=== PATIENT | female | born 1965 | race Caucasian/White ===

== ENCOUNTER 2019-08-16 10:56 | Outpatient (CLI) | payer OTHER ==
[2019-08-16 12:24] LABS: MEAN CORPUSCULAR HEMOGLOBIN 21.5 pg (27.0-34.8); MEAN CORPUSCULAR HGB CONC 30.7 g/dL (32.4-35.8); MEAN CORPUSCULAR VOLUME 70.1 fL (80-100); MEAN PLATELET VOLUME 8.5 fL (7.4-10.4); PLATELET COUNT 410 x10^3/uL (130-400); RED BLOOD COUNT 5.36 x10^6/uL (3.82-5.3); RED CELL DISTRIBUTION WIDTH 22.6 % (9.6-15.2)
[2019-08-16] MEDS ORDERED: B COMPLEX PO (12:30)
[2019-08-16] MEDS ORDERED: MAGNESIUM PO (12:30)
[2019-08-16] MEDS ORDERED: MULT-252 PO (12:30)
[2019-08-16] MEDS ORDERED: VIT. D3 PO (12:30)
[2019-08-16] MEDS ORDERED: ASPIRIN PO (12:30)
[2019-08-16] MEDS ORDERED: LEVO25TA4 PO (12:30)
[2019-08-16 12:46] LABS: BASOPHILS # (AUTO) 0.02 x10^3/uL (0-0.1); BASOPHILS % (AUTO) 0 % (0-1); EOSINOPHILS # (AUTO) 0.11 x10^3/uL (0-0.4); EOSINOPHILS % (AUTO) 1 % (1-7); LYMPHOCYTES # (AUTO) 1.93 x10^3/uL (1-3.4); LYMPHOCYTES % (AUTO) 21 % (22-44); MD SCAN; MONOCYTES # (AUTO) 0.36 x10^3/uL (0.2-0.8); MONOCYTES % (AUTO) 4 % (2-9); NEUTROPHILS # (AUTO) 6.63 x10^3/uL (1.8-6.8); NEUTROPHILS % (AUTO) 73 % (42-75)
== END 2019-08-16 23:59 | disposition home or self-care (01) ==
LOC: STAR 10:56
PROVIDERS: ATTEND Obstetrics & Gynecology Gynecology
DX: Z01.818 Encounter for other preprocedural examination (principal); N92.4 Excessive bleeding in the premenopausal period; D25.9 Leiomyoma of uterus, unspecified; D64.9 Anemia, unspecified; Z79.899 Other long term (current) drug therapy
CPT/HCPCS: 36415; 80074; 84703; 85025; 87806; G0475

== ENCOUNTER 2019-08-23 10:50 | Day surgery (SDC) | payer OTHER ==
[~2019-08-23] VITALS: Ht 170.2 cm; Wt 78.3 kg
[~2019-08-23 10:50] MED LIST: ASPIRIN PO; B COMPLEX PO; LEVO25TA4 PO; MAGNESIUM PO; MULT-252 PO; VIT. D3 PO
[2019-08-23 11:21] VITALS: BP 154/85
[2019-08-23] MEDS ORDERED: LACTATED RINGERS 1,000 ML IV SCH (11:25)
[2019-08-23] MEDS ORDERED: ACETAMINOPHEN 500 MG TABLET PO ONE (11:30)
[2019-08-23] MEDS ORDERED: MIDAZOLAM 1 MG/ML, 2ML ONE (12:06)
[2019-08-23] MEDS ORDERED: PROPOFOL 10 MG/ML, 20ML ONE (12:06)
[2019-08-23] MEDS ORDERED: FENTANYL PF 100 MCG/2ML ONE (12:06)
[2019-08-23] MEDS ORDERED: ONDANSETRON 2MG/ML, 2ML ONE (12:06)
[2019-08-23] MEDS ORDERED: LIDOCAINE-MPF 2% ,5ML ONE (12:06)
[2019-08-23] MEDS ORDERED: DEXAMETHASONE 4 MG/ML, 1ML ONE (12:06)
[2019-08-23] MEDS ORDERED: BUPIVACAINE/PF 0.25% ONE (12:32)
[2019-08-23 12:49] LABS: HCG UR SG 1.022 (1.003-1.030)
[2019-08-23] MEDS ORDERED: OXYcodone 5 MG/5 ML ORAL.SOL UDC PO PRN (13:30)
[2019-08-23] MEDS ORDERED: ONDANSETRON 2MG/ML, 2ML IV PRN (13:30)
[2019-08-23] MEDS ORDERED: HYDROmorphone 2 MG/ML, 1ML IVPush PRN (13:30)
[2019-08-23] MEDS ORDERED: LORazepam 2 MG/ML, 1ML IVPush PRN (13:30)
[2019-08-23] MEDS ORDERED: FENTANYL PF 100 MCG/2ML IV PRN (13:30)
== END 2019-08-23 16:15 | disposition home or self-care (01) ==
LOC: OUT 10:50
PROVIDERS: ATTEND Obstetrics & Gynecology Gynecology
DX: N93.8 Other specified abnormal uterine and vaginal bleeding (principal); N84.0 Polyp of corpus uteri; D64.9 Anemia, unspecified; E03.9 Hypothyroidism, unspecified; F32.9 Major depressive disorder, single episode, unspecified; D25.9 Leiomyoma of uterus, unspecified; N92.4 Excessive bleeding in the premenopausal period; Z98.51 Tubal ligation status
CPT/HCPCS: 58558; 81025; 88305; J1100; J2250; J2405; J2704; J3010; J3490; J7120